=== PATIENT | female | born 1980 | race Caucasian/White ===

== ENCOUNTER 2024-08-20 09:49 | Outpatient (CLI) | payer OTHER, SELFPAY ==
--- NOTE | 2024-08-20 10:15 | CRLHL7_ITS ---
For Patients: As a result of the Century Cures Act, medical imaging exams and procedure reports are released immediately into your electronic medical record. You may view this report before your referring provider. If you have questions, please contact your health care provider. ULTRASOUND-GUIDED RIGHT BREAST BIOPSY AND POST-BIOPSY DIGITAL MAMMOGRAM FOR BIOPSY MARKER PLACEMENT CLINICAL HISTORY: Indeterminate mass-like area. COMPARISON STUDIES: 07/13/2024, 06/29/2024. TECHNIQUE: Real-time ultrasound with image documentation was used for targeting the breast lesion. Core biopsy specimens were obtained using an automated gun with a 14-gaugebiopsy needle. Post-biopsy CC and ML digital mammograms were obtained to document position of the biopsy marker. CONSENT and TIME OUT: The procedure, risks, and alternatives were explained to the patient and a consent was signed. [place] Protocol was followed including pre-procedure verification that relevant information/documentation was available, reviewed and properly matched to the patient; consent accurate and complete; and equipment and supplies available. Time Out was conducted just prior to starting procedure to verify the four required elements: patient identity, correct side/site marked (if applicable), procedure, relevant images/results properly labeled and displayed (if applicable). PROCEDURE: The patient was positioned supine on the ultrasound table. The breast was prepped with Betadine. 10 cc of 1 percent lidocaine used for local anesthesia. Core samples were obtained. A sterile metal biopsy clip was placed percutaneously to mandeep the lesion position within the breast. The specimens were placed in 10% formalin and sent to the pathology department. Pressure was held on the biopsy site until all bleeding subsided. The skin incision was closed with Steri-Strips. An ice pack was positioned over the biopsy site. Post-biopsy instructions were reviewed with the patient, and a written copy was given to her. LATERALITY: RIGHT breast. LESION: Heterogeneous area of dense tissue measuring approximately 6 cm at 12 o`clock 13 cm from the nipple. SUSPICION FOR MALIGNANCY: Low. NUMBER OF SAMPLES: 5, samples were limited due to patient anxiety and movement. BIOPSY CLIP SHAPE: 0. PROXIMITY OF CLIP TO TARGET: Within/adjacent to the lesion. IMPRESSION: Ultrasound-guided breast biopsy. When the pathology report is available, an addendum to this report will be made. ACR not applicable Dictated by Chu Becerril MD @ 08/20/2024 12:18:26 PM /sp SP/Dictated by: Chu Becerril MD @ 08/20/2024 12:18:00 PM (Electronically Signed)
--- NOTE | 2024-08-20 11:00 | CRLHL7_ITS ---
For Patients: As a result of the Century Cures Act, medical imaging exams and procedure reports are released immediately into your electronic medical record. You may view this report before your referring provider. If you have questions, please contact your health care provider. PLEASE SEE RIGHT BREAST ULTRASOUND-GUIDED BIOPSY OF SAME DAY. CRL:sp SP/Dictated by: Chu Becerril MD @ 08/20/2024 12:16:00 PM (Electronically Signed)
== END 2024-08-20 09:50 | disposition home or self-care (01) ==
LOC: US 09:54
PROVIDERS: PCP Physician Assistant; Visit Provider Physician Assistant
DX: N63.10 Unspecified lump in the right breast, unspecified quadrant (principal); R92.333 Mammographic heterogeneous density, bilateral breasts; N62 Hypertrophy of breast; R92.8 Other abnormal and inconclusive findings on diagnostic imaging of breast
CPT/HCPCS: 19083; 77065; 88305; A4648; A4649

== ENCOUNTER 2025-05-31 20:36 | Emergency (ER) | payer OTHER, SELFPAY ==
--- OUTSIDE RECORDS SUMMARY | 2025-05-31 20:38 | XMS_ITS | Clinical Summary ---
Author Organization [facility] Address [address] [place] [address] Care Team Providers Care Groundsman Name Role Phone Jodie Grijalva Primary Care Provider Allergies Active Allergy Reactions Criticality Noted Date Comments Codeine Other - Describe In Comment Field 09/07/2006 severe abdominal pain, age [age] Opioids - Morphine Analogues Nausea Only 04/18/2017 nausea Prednisone Other - Describe In Comment Field Low 11/29/2019 Pt states she does not like the side effects and will not take it unless necessary Hydrocodone-Acetaminop hen Nausea And Vomiting 09/07/2006 2004 Medications Cholecalciferol, Vitamin D3, 2,000 unit tablet Take 1 tablet by mouth 2 times daily. Patient is taking 5 tablets by mouth daily for a total of 10,000 unit 7 Active albuterol-ipratr opium (DUONEB) (2.5-0.5 mg) in 3 mL NEBULIZATION solutionIndicati ons:Moderate persistent asthma with acute exacerbation (HC) Inhale 3 mL via a nebulizer 4 times daily if needed. 1 box 5 8 Active clonazePAM (KLONOPIN) 0.5 mg tabletIndication s:Anxiety Could take 1-2 pills prior to dentist or during the dentist for anxiety if needed 20 tablet. 2 Active cyclobenzaprine (FLEXERIL) 10 mg tabletIndication s:Neck pain Take 1 Tablet (10 mg) by mouth 3 times daily if needed for Muscle Spasm. 30 Tablet 1 3 Active loratadine (Claritin) 10 mg tablet Take 1 Tablet (10 mg) by mouth once daily. 0 3 Active montelukast (SINGULAIR) 10 mg tabletIndication s:Environmental allergies,Mild intermittent asthma without complication (HC) Take 1 Tablet (10 mg) by mouth at bedtime. 90 Tablet 3 4 Active budesonide-formo teroL (Symbicort) 80-4.5 mcg/actuation (80-4.5 mcg each actuation) inhalerIndicatio ns:Environmental allergies,Mild intermittent asthma without complication (HC) INHALE TWO PUFFS BY MOUTH TWICE A DAY, increase to 2 puffs every 6 hrs with respiratory flare 1 Each 11 4 Active levalbuterol (XOPENEX HFA) 45 mcg/actuation inhalerIndicatio ns:Environmental allergies,Mild intermittent asthma without complication (HC) Inhale 1-2 Puffs by mouth every 4 hours if needed for Shortness Of Breath or Wheezing. 15 g 11 4 Active naltrexone LOW DOSE oral custom compoundIndicati ons:Fatigue, unspecified type Low Dose Naltrexone compounded to 4.5 mg tablets: Take 1 tablet by mouth daily at bedtime 90 Each 2 5 Active valACYclovir 1 gram tabletIndication s:Cold sore Take 2 Tablets (2 g) by mouth two times daily. Take for 1 day if cold sore develops as needed 32 Tablet 3 5 Active medication order composerIndicati ons:Fatigue, unspecified type,H. 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 Plan: HPV-based testing due 02/2028. Prediabetes 07/12/2019 Overview (07/12/2019): Dx age 39 History of Clostridium difficile infection 11/15 ANDRIY on CPAP 08/29/2016 Overview (01/05/2018): mild Vitamin D deficiency disease 01/16/2015 Gastritis 04/08/2014 Overview (04/08/2014): EGD 03/2014 gastritis Sciatica 01/03/2014 Anxiety 10/01/2010 Premenstrual dysphoric disorder 10/10/2009 HEALTH CARE MAINTENANCE 08/08/2009 Overview (08/08/2009): Pap Mammo Colonoscopy Bone Density Last Lipids: Chol: 161 05/05/06 9:47 AM T 12/30/04 11:09 AM HDL: 51 12/30/04 11:09 AM LDL: 115 12/30/04 11:09 AM LDL DIRECT: GLUCOSE (mg/dL) Date Value 10/04/06 4:50 PM 79 Morbid obesity 05/16/2007 Unspecified hypothyroidism 11/08/2006 Overview (11/08/2006): Goiter/+Thyroid Antibodies. Unspecified asthma(493.90) 11/08/2006 Allergic rhinitis, cause unspecified 11/08/2006 Resolved Problems Problem Noted Date Diagnosed Date Resolved Date Encounter for IUD insertion 10/07/2014 06/08/2023 Overview (10/07/2014): Removal and reinsertion today. 10/07/2014. Removal 2020..ASH Valero ....................... 10/07/2014 4:25 PM Lot [id number] EXP 03/2017.ASH Valero ....................... 10/07/2014 4:28 PM Nonallopathic lesion of lumb ar region, not elsewhere classified 01/03/2014 06/08/2023 Nonallopathic lesion of thor acic region, not elsewhere classified 01/03/2014 06/08/2023 Nonallopathic lesion of cerv ical region, not elsewhere classified 01/03/2014 06/08/2023 Nonallopathic lesion of cerv ical region, not elsewhere classified 05/12/2012 01/03/2014 Nonallopathic lesion of lumb ar region, not elsewhere classified 05/12/2012 01/03/2014 Headache(784.0) 05/12/2012 01/03/2014 IUD (intrauterine device) in place 10/10/2009 10/07/2014 Overview (10/10/2009): Mirena placed 10/2009. Acute bronchitis 09/27/2008 10/14/2014 Supervision of other normal 02/16/2008 08/08/2009 Closed trimalleolar fracture 08/17/2007 05/02/[address] acental problems affecting management of mother, unspecified as to episode of care 05/16/2007 08/08/2009 Overview (05/16/2007): meconium Other and unspecified cord e ntanglement, with compression, complicating labor and delivery, unspecified as to episode of care 05/16/20072008 Overview (05/16/2007): True knot in cord Normal delivery 05/16/2007 08/08/2009 Obesity, unspecified 11/08/2006 009 BORDERLINE HYPERTENSION 11/08/200605/29 Supervision of normal first 09/16/2006 02/16/2008 Encounters Date Type Department Care Team Description 04/12/2025 3:00 PM CDT Telemedicine [facility] [address] [place] [address] Giana Johnson NP Telehealth; Follow Up 04/07/2025 Travel 03/22/2025 1:00 PM CDT Office Visit [facility] [address] [facility] [address] [place] [address] Thi Montana MD Physical (routine physical and pap) 03/21/2025 Travel from Last 3 Months Immunizations Immunization Administration Dates Next Due AMB Influenza, IIV3 (Age >=3 years)(Flu Clinic O nly) 07/15/2008 COVID-19 vaccine (H?REL 30mcg/0.3mL) P F, MDV 04/09/2022 DTP 04/02/1986 DTaP 04/02/1986 Inactivated Polio Vaccine 04/02/1986 Influenza A (H1N1), Inactivated (Age >=3 Years) 08/08/2009 Influenza Virus, Unspecified 08/11/1998,05/29/19 93 Influenza, IIV3 (Age >=3 years) 05/15/2009,07/17 Influenza, IIV4 05/31/2022,06/26/2020 Influenza,CCIIV4 PRESERV FREE 07/06/2023 MMR 11/20/1992 Oral Polio Vaccine 04/02/1986 Pneumococcal Conj 20-valent (Prevnar 20) 022 Td (Age >=7 Years) 12/04/1997 Tdap 03/19/2016,01/25/2006 Family History Medical History Relation Name Comments Good Health Brother 1 X2,1/2 both HTN, Hypertension Brother 1 X2,1/2 Other Brother 2 Narcolepsy in h penitentiary-brother. Good Health Daughter Danni born in 05-05 Hyperlipidemia Father Hypertension Father Other Father Sleep Apnea Hypertension Maternal Grandfather Stroke Maternal Grandfather Cancer-colon Maternal Grandmother Diabetes Maternal Grandmother Good Health Maternal Grandmother Hyperlipidemia Mother Hypertension Mother Other Mother obesity, edema Heart Disease Paternal Grandfather Stroke Paternal Grandfather Stroke Paternal Grandmother at age 87 Other Paternal Uncle Sleep Apnea i n 6/7 paternal uncles. Hypertension Sister 2 Hyperlipidemia Sister 3 Good Health Sister 4 weight issues. Relation Name Status Comments Brother 1 X2,1/2 Alive Brother 2 Daughter Danni Alive Father Alive Maternal Grandfather (Age age 77 ) emphysema, stroke, HTN Maternal Grandmother Alive Mother Alive Paternal Grandfather (Age 67) [place] , fifth one Paternal Grandmother Alive age 84, new stroke Paternal Uncle Sister 1 Alive Sister 2 Sister 3 Sister 4 Social History Tobacco Use Types Packs/Day Years Used Date Smoking Tobacco: Never Smokeless Tobacco: Never Tobacco Cessation:Counseling Given: Not Answered Alcohol Use Standard Drinks/Week Comments Not Currently 0 (1 standard drink = 0.6 oz pur e alcohol) PHQ-2 Answer Date Recorded PHQ-2 TOTAL SCORE 0 03/22/2025 Social Connections Answer Date Recorded Do you often feel lonely or isolated from those around you? 0 03/21/2025 Financial Resource Strain Answer Date R ecorded Difficulty of Paying Living Expenses 3 03/21/2025 Difficulty of Paying Living Expenses Not on file 03/21/2025 Food Insecurity Answer Date Recorded Do you worry your food will run out before you are able to buy more? 1 03/21/2025 Transportation Needs Answer Date Record ed Does lack of transportation keep you from medica l appointments? 1 03/21/2025 Does lack of transportation keep you from work, meetings or getting things that you need? 1 03/21/2025 Housing Stability Answer Date Recorded What is your housing situation today? 1 03/21/2025 Utilities Answer Date Recorded Do you have trouble paying f or utilities (for example, heat, electricity, water, phone)? 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 Borderline high BP b/4 preg. Increased BP at 36wks with bedrest. SROM. Normal delivery. 2008 Term 39w 0d 12h 00m/ 3.54 kg (7 lb 13 oz) M Vag Epidur al Livin g Zakar y Matts on Delivery Location:[place] Comments A+, no GBS. Morbid obesity d uring the Last Filed Vital Signs Vital Sign Reading Time Taken Comments Blood Pressure 130/74 03/22/2025 12:57 PM CDT Pulse 78 03/22/2025 12:57 PM CDT Temperature 37.3 C (99.1 F) 06/04/2023 10:21 PM CDT Respiratory Rate 18 06/04/2023 10:2 1 PM CDT Oxygen Saturation 98% 06/08/2023 3:24 PM CDT Inhaled Oxygen Concentration - - Weight 112.9 kg (248 lb 12.8 oz) 2024 12:57 PM CDT Height 172.7 cm (5' 8) 03/22/2025 12:5 7 PM CDT Body Mass Index 37.83 03/22/2025 12:57 PM CDT Plan of Treatment Upcoming Encounters Date Type Department Care Team (Late st Contact Info) Description 07/16/2025 4:15 PM COMPUTER DRAFTER Telemedicine [address] [address] Giana Johnson, ZACH [address] [facility] [address] [place] [address] Health Maintenance Due Date Last Done Comments Hepatitis B series for 19+ (1 of 3 - 19+ 3-dose series) 2000 HPV series for age 9-45 (1 - 3-dose SCDM series) 2008 COVID-19 vaccine series (2024- season) 2025 04/09/2022 Influenza Vaccine (#1) 2025 , 05/31/2022, 06/26/2020, Additional history exists Tetanus booster 03/19/2026 03/19/2016, 12/29, 12/04/1997 BMI (ht and wt on same day) for age 18+ 03/22/2026 03/22/2025, 01/02/2024, 06/08/2023, Additional history exists Depression screening for age 12+ 03/22/2026 03/22/2025, 01/04/2024, 01/02/2024, Additional history exists Pap test for age 21-65 03/22/2026 , 03/22/2025, 01/02/2024, Additional history exists RSV vaccine for adults or (1 - 1-dose 75+ series) 2056 HIV for age 15-65 Addressed 12/01/2002 (Ve rified in Care Everywhere or Patient Record) Overridden with the intention of not completing the topic Hepatitis C screening for age 18-79 Completed 05/31/2022 Pneumococcal series for age 6-49 Aged Out 05/31/2022 No longer eligible b ased on patient's age to complete this topic Medical Devices Implanted Type Area Tennis Coach Device Identifier Shelf Expiration Date Model / Serial / Lot Plate 08/31 Tubular 97mm 8 Hole W/Collar - [id number] Implanted:Qty : 1 on 08/17/2007 at [facility] Imp.,Screw s & Plates Left: Ankle Depreeplay.it 241.38# / / Screw Cortex 3.5x14mm Self Tapping 204.814 [employer]ob - [id number] Implanted:Qty : 3 on 08/17/2007 at [facility] Imp.,Screw s & Plates Left: Ankle Depreeplay.it 204.814# / / Screw Canclls 4.0x45mm Part Thread 207.045 [employer] - [id number] Implanted:Qty : 2 on 08/17/2007 at [facility] Imp.,Screw s & Plates Left: Ankle Depreeplay.it 207.045# / / Screw Cortex 3.5x18mm Self Tapping 204.818 [employer] - [id number] Implanted:Qty : 1 on 08/17/2007 at [facility] Left: Ankle Depuy [employer] 204.818# / / Screw Cortex 3.5x22mm Self Tapping 204.822 Synthes - [id number] Implanted:Qty : 1 on 08/17/2007 at [facility] Left: Ankle Depuy [employer] 204.822# / / Screw Canclls 4.0x20mm Full Thread 206.020 Synt - [id number] Implanted:Qty : 2 on 08/17/2007 at [facility] Left: Ankle Depuy Synthes [employer] 206.020# / / Procedures Procedure Name Priority Date/Time Associated Diagnosis Comments MILLER KILN DRIED SALT THIN PREP PAP SCREEN IMAGED Routine 03/22/2025 1:00 AM CDT Screening for cervical cancer HPV HIGH RISK Routine 03/22/2025 1:00 AM CDT Screening for cervical cancer ANTI HCV Routine 05/31/2022 1:59 PM CDT Need for hepatitis C screening test from Last 3 Months or Most Recently Relevant to Health Maintenance Results * MILLER KILN DRIED SALT THIN PREP PAP SCREEN IMAGED (03/22/2025 1:00 AM CDT) Case Report Gynecologic Cytology Report Case: [id number] Authorizing Provider: Thi Montana Collected: 03/22/2025 Gumaro0 MD Dudley Ordering Location: [facility] Received: 03/22/2025 1336 Clinic First Screen: Tereso Bishop Specimen: MILLER KILN DRIED SALT ThinPrep Vial Screening, Cervical 03/31/2025 2:31 PM CDT [facility] INTERPRETATION/ RESULT NEGATIVE FOR INTRAEPITHELIAL LESION OR MALIGNANCY (NIL) (none) 03/31/2025 2:31 PM CDT [facility] at 1431 CDT SPECIMEN ADEQUACY Satisfactory for evaluation Endocervical component present 03/31/2025 2:31 PM CDT [facility] HPV REQUEST HPV and PAP 03/31/2025 2:31 PM CDT [facility] ENTRAL LAB[facility]ORY Date of LMP 05/01/2022 03/31/2025 2:31 PM CDT [facility] Last Pap Date 01/02/2024 03/31/2025 2:31 PM CDT [facility] Last Pap Result NIL 2:31 PM CDT [facility] Abnormal Pap or [place] Bx in last 5 years No 03/31/2025 2:31 PM CDT [facility]ORY Menstrual Status Hormonally Suppressed 03/31/2025 2:31 PM CDT [facility] [place] Bx Done Today No 03/31/2025 2:31 PM CDT [facility] Additional Information None given 03/31/2025 2:31 PM CDT [facility] ENTR[facility] LABOR[facility]ORY Comment: Cytology is screened at [facility], Central Laboratory - [address] [facility] [address] [address] and [facility] - [address] [place] [address] and [facility] - [address] [place] [address] Interpreted at [facility] - [address] , [place] [address] Automated Review Successful 03/31/2025 2:31 PM CDT [facility] Comment:Specimen processed s uccessfully by automated human resource manager device, ThinPrep Imaging System, [employer] ANCILLARY TESTING MILLER KILN DRIED SALT HPV Ordered, Please see separate report 03/31/2025 2:31 PM CDT [facility] Note The pap test is a screening technique, not a diagnostic procedure. It is used primarily to screen for squamous cancers and precursor lesions. Published studies have shown that it is subject to both false negative and false positive results. The pap test should not be used as the sole means to diagnose or exclude pre-malignant and malignant lesions. 03/31/2025 2:31 PM CDT [facility] Other (Cervical) Non-Blood / Unknown 03/22/2025 1:00 AM CDT 03/22/2025 1:36 PM CDT Thi Montana MD PATHOLOGY/CYTOLOG Y Final Result Performing Organization Address City/[facility]/ZIP Co de Phone Number [facility] [address] [place] [address], * HPV HIGH RISK (03/22/2025 1:00 AM CDT) TYPE 16 Negative Negative 03/28/2025 8:59 AM CDT [facility] TRAL LABORATORY TYPE 18 Negative Negative 03/28/2025 8:59 AM CDT [facility] OTHER HIGH RISK TYPES Negative Negative 03/28/2025 8:59 AM CDT [facility] Other (Cervical) Non-Blood / Unknown 03/22/2025 1:00 AM CDT 03/26/2025 8:12 AM CDT Narrative [facility] - 03/28/2025 8:59 AM CDT HPV types 16, 18, 31, 33, 35, 39, 45, 51, 52, 56, 58, 59, 66 and 68 DNA were undetectable or below the pre-set threshold. Methodology: Anabela Eduardo 4800 HPV Test Thi Montana MD MICROBIOLOGY F inal Result Performing Organization Address [facility] Co de Phone Number [facility] [address] [place] [address], * ANTI HCV (05/31/2022 1:59 PM CDT) HEPATITIS C ANTIBODY Non-React harish Non-React harish 06/01/2022 1:34 AM CDT [facility] Comment:Antibodies to HCV no t detected; does not exclude the possibility of exposure to HCV. Blood BLOOD SPECIMEN / Unknown Venipuncture / Unknown 05/31/2022 1:59 PM CDT 05/31/2022 2:04 PM CDT Jodie GONZALEZ SEND OUTS Final Result [facility] [address] [place] [address], from Last 3 Months or Most Recently Relevant to Health Maintenance Insurance [facility] ATTN: [place] [address] [facility] * Guarantor: [facility] Account Type Relation to Patient Date of Phone Billing Address Contract 2005 [address] [place] [id number] Advance Directives * Full Code (Latest Code Status on File) Date Activated Date Inactivated Comments 09/27/2008 10:35 AM 09/28/2008 1:56 AM * Full Code Date Activated Date Inactivated Comments 09/21/2008 10:22 PM 09/22/2008 1:23 AM * Full Code Date Activated Date Inactivated Comments 09/04/2008 6:01 PM 09/04/2008 8:36 PM * Full Code Date Activated Date Inactivated Comments 08/17/2007 5:28 PM 08/19/2007 12:05 AM * Full Code Date Activated Date Inactivated Comments 08/16/2007 8:38 PM 08/17/2007 5:28 PM Care Teams Groundsman Relationship Specialty Start Date End Date Jodie Grijalva PA [address] [address] [place] [address] PCP - General Physician Manager Wholesale 01/04/24
--- OUTSIDE RECORDS SUMMARY | 2025-05-31 20:38 | XMS_ITS | Encounter Summary ---
Author Organization [facility] Address [address] [place] [address] Care Team Providers Care Precision Inspector Name Role Phone Jodie Grijalva PA-C Primary Care Provider [phone] Encounter Details Date Type Department Care Team (Late st Contact Info) Description 05/03/2018 Correspondence None No Primary/Referring, Phy DME EQUIPMENT PROOF OF DELIVERY Social History Tobacco Use Types Packs/Day Years Used Date Smoking Tobacco: Never Comments Unknown Sex and Gender Information Value Date Recorded Sex Assigned at Not on file Legal Sex Female 11:44 AM CDT Gender Identity Not on file Sexual Orientation Not on file documented as of this encounter Plan of Treatment Not on file documented as of this encounter Visit Diagnoses Not on filedocumented in this encounter Care Teams Precision Inspector Relationship Specialty Start Date End Date Jodie Grijalva PA-C [address] [facility] [address] [place] [address] PCP - General Physician Welding Machine Operator Arc 02/15/17 documented as of this encounter
--- OUTSIDE RECORDS SUMMARY | 2025-05-31 20:39 | XMS_ITS | Clinical Summary ---
Author Organization [facility] Address [address] [place] [address] Care Team Providers Care Icer Hand Name Role Phone Jodie Grijalva PA-C Primary Care Provider [phone] Source Comments You are receiving this document as you are listed as the primary care provider,follow-up provider, or the patient has been referred to you for consultation.This is in compliance with the Medicare andMedicaid EHR Incentive Program,which states Providers who transition their patient to another setting of careor provider of care or refers their patient to another provider of care shouldprovide summary care record for each transition of care or referral. [facility] Allergies Active Allergy Reactions Criticality Noted Date Comments Codeine Gastrointestinal,Pete sea And Vomiting,Other, see comments 09/07/2006 Other reaction(s): GI intolerance severe abdominal pain, age 2003 severe abdominal pain, age 2003 Hydrocodone-Acetaminop hen Nausea And Vomiting 09/07/2006 2004 2004 Prednisone Gastrointestinal,Oth er, see comments Low 11/29/2019 Pt states she does not like the side effects and will not take it unless necessary Pt states she does not like the side effects and will not take it unless necessary Pt states she does not like the side effects and will not take it unless necessary Morphine And Codeine 04/18/2017 nausea Medications montelukast (SINGULAIR) 10 MG tablet Take 1 Tablet (10 mg) by mouth daily at bedtime. 2 03/08/2017 Active ALBUterol sulfate HFA 108 (90 Base) MCG/ACT inhaler Inhale 2-4 Puffs. 06/09/2016 Active albuterol 2.5 mg/3 mL, 0.083%, (PROVENTIL) nebulizer solution Inhale 2.5 mg. 10/11/2014 Active ALBUterol sulfate HFA 108 (90 Base) MCG/ACT inhaler Inhale 2-4 Puffs. 06/09/2016 Active SYMBICORT 80-4.5 MCG/ACT inhaler Inhale 2 Puffs two times a day. 11 08/23/2019 Active budesonide-formo terol (SYMBICORT) 80-4.5 MCG/ACT inhaler Inhale 2 Puffs. 05/01/2019 Active naltrexone (REVIA) 50 MG tablet Take 4.5 mg by mouth daily. Active Active Problems Problem Noted Date Diagnosed Date Obstructive sleep apnea on CPAP 04/18/2017 Overview (04/21/2017): Setting: APAP 5-15 Supplied by: [facility] PSG done: 04/05/17 AHI 7 (eds) RDI 14 Lowest O2 Sat: 89% [place] 04/18/17 new Hypersomnia 04/18/2017 Asthma 02/02/2003 Overview (04/20/2017): Asthma NOS Lumbago 02/02/2003 Overview (04/20/2017): Pain Low Back Obesity 02/02/2003 Encounters Date Type Department Care Team Description 04/03/2025 Results Follow-Up [facility] [place] [address] [place] [address] Navarro Cordova MD 04/01/2025 5:00 PM CDT Ancillary Procedure [facility] [address] [address] [place] [phone] Navarro Cordova MD Closed displaced fracture of fifth metatarsal bone of left foot with routine healing, subsequent encounter 03/22/2025 9:40 AM CDT Office Visit [facility] [address] [place] [phone] Navarro Cordova MD Closed displaced fracture of fifth metatarsal bone of left foot with routine healing, subsequent encounter (Primary Dx) 03/22/2025 9:30 AM CDT Ancillary Procedure [facility] [place] [address] [address] [address] [place] [address] Navarro Cordova MD Closed displaced fracture of fifth metatarsal bone of left foot with routine healing, subsequent encounter from Last 3 Months Immunizations Immunization Administration Dates Next Due DTP 04/02/1986 Influenza, Unspecified Formulation 08/11/1998, OPV, Trivalent (Orimune or tOPV) 04/02/1986 Td 12/04/1997 Social History Tobacco Use Types Packs/Day Years Used Date Smoking Tobacco: Never Smokeless Tobacco: Never Alcohol Use Standard Drinks/Week Comments Yes 0 (1 standard drink = 0.6 oz pur e alcohol) Comments Unknown Sex and Gender Information Value Date Recorded Sex Assigned at Not on file Legal Sex Female 11:44 AM CDT Gender Identity Not on file Sexual Orientation Not on file Last Filed Vital Signs Vital Sign Reading Time Taken Comments Blood Pressure 125/93 04/18/2017 4:29 PM CDT Pulse 93 07/29/2018 8:34 AM LIQUOR INSPECTOR Temperature 37.3 C (99.2 F) 01/13/2025 5:15 PM CDT Respiratory Rate - - Oxygen Saturation 97% 07/29/2018 8:34 AM LIQUOR INSPECTOR Inhaled Oxygen Concentration - - Weight 110.2 kg (243 lb) 01/13/2025 5:15 PM CDT Height 170.2 cm (5' 7) 01/13/2025 5:15 PM CDT Body Mass Index 38.06 01/13/2025 5:15 PM CDT Plan of Treatment Health Maintenance Due Date Last Done Comments Hep C Screening (Preventive Services) 1981 Asthma ACT (score of 20 or higher) 1985 IPV (Polio) Vaccine (2 of 3 - 4-dose series) 04/30/1986 04/02/1986 HIV Screening (Preventive Services) 1997 Adult Preventive Visit 1999 HepB Vaccine (1) 2000 Cervical Cancer Screening Due 11/15/2001 11/14/2001, 02/09/2000, 11/04/1998 HPV Vaccine (1 - 3-dose SCDM series) 2008 COVID-19 Vaccine (2 - season) 2025 04/09/2022 Influenza Vaccine (#1) 2025 , 05/31/2022, 06/26/2020, Additional history exists Mammogram 06/29/2025 06/29/2024 DTaP/Tdap/Td Vaccine (5 - Tdap) 03/19/2026 03/19/2016, 01/25/2006, 12/04/1997, Additional history exists Diabetes Screening- (based on age and BMI) 06/09/2026 06/09/2023 Zoster/Shingles Vaccine (1 of 2) 2031 Pneumococcal Vaccine Completed 05/31/2022 HepA Vaccine Aged Out No longer eligi ble based on patient's age to complete this topic Hib Vaccine Aged Out No longer eligi ble based on patient's age to complete this topic MCV4 Vaccine Aged Out No longer eligi ble based on patient's age to complete this topic Meningococcal B Vaccine Aged Out No l onger eligible based on patient's age to complete this topic Procedures Procedure Name Priority Date/Time Associated Diagnosis Comments CT FOOT LT WO IV CONT Routine 04/01/2025 4:55 PM CDT Closed displaced fracture of fifth metatarsal bone of left foot with routine healing, subsequent encounter XR FOOT LT 3+ VIEWS Routine 03/22/2025 9 :37 AM CDT Closed displaced fracture of fifth metatarsal bone of left foot with routine healing, subsequent encounter ANATOMICAL PATH-C Routine 11/14/2001 12: 07 PM LIQUOR INSPECTOR from Last 3 Months or Most Recently Relevant to Health Maintenance Results * CT Foot Lt WO IV Cont (04/01/2025 4:55 PM CDT) Anatomical Region Laterality Modality Lower Extremity, Foot, Ankle, Skeletal, Foot & A nkle Computed Tomography Impressions 04/02/2025 9:31 AM CDT 1. Osseous fusion across the bulk of the nondisplaced fracture of the base of the left 5th metatarsal. 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 COMPARISON: 03/22/2025, 01/13/2025 TECHNIQUE: Thin section axial scans were obtained through the foot. Sagittal and coronal reconstruction was performed without contrast. FINDINGS: Nondisplaced oblique intra-articular fracture of the lateral base of the 5th metatarsal. There has been osseous fusion across the bulk of the fracture. Minimal persistent fracture lucency plantar and laterally. The fracture appears to be essentially healed. No new fractures. No dislocation. Limited evaluation of the surgical changes in the medial and lateral malleoli appear unremarkable without definite hardware complication. Multiple small ossicles abutting the tips of the medial and lateral malleoli likely sequela of prior injury. 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 Small intra-articular ossicles are seen in the anterior aspect of the tibiotalar joint measuring up to approximately 5 mm. Mild degenerative arthrosis of the talonavicular and subtalar joints. Mild degenerative arthrosis of the 1st metatarsophalangeal joint. Remainder of the visualized joints are unremarkable. No marginal erosions. Procedure Note Lane Webber MD - 04/02/2025 EXAM: CT FOOT LT WO IV CONT INDICATION: 5th metatarsal base nonunion? COMPARISON: 03/22/2025, 01/13/2025 TECHNIQUE: Thin section axial scans were obtained through the foot.Sagittal and coronal reconstruction was performed without contrast. FINDINGS: Nondisplaced oblique intra-articular fracture of the lateral base of the5th metatarsal. There has been osseous fusion across the bulk of thefracture. Minimal persistent fracture lucency plantar and laterally. Thefracture appears to be essentially healed. No new fractures. No dislocation. Limited evaluation of the surgicalchanges in the medial and lateral malleoli appear unremarkable withoutdefinite hardware complication. Multiple small ossicles abutting the tipsof the medial and lateral malleoli likely sequela of prior injury. 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 Smallintra-articular ossicles are seen in the anterior aspect of the tibiotalarjoint measuring up to approximately 5 mm. Mild degenerative arthrosis ofthe talonavicular and subtalar joints. Mild degenerative arthrosis of the1st metatarsophalangeal joint. Remainder of the visualized joints areunremarkable. No marginal erosions. IMPRESSION 1. Osseous fusion across the bulk of the nondisplaced fracture of the baseof the left 5th metatarsal. Signed by: Lane Webber 04/02/2025 9:31 AM Navarro Cordova MD RAD CT Final Res ult * XR Foot Lt 3+ Views (03/22/2025 9:37 AM CDT) Anatomical Region Laterality Modality Lower Extremity, Foot Digital Ra diography Narrative 03/22/2025 10:39 AM CDT EXAM: XR FOOT LT 3+ VIEWS INDICATION: left foot pain COMPARISON: 01/13/2025 FINDINGS: Three images left foot. Healing fracture at the 5th metatarsal base with increased callus formation. No change in alignment. No new osseous abnormality. Postoperative change about the ankle. Signed by: Jez James 03/22/2025 10:39 AM Procedure Note Jez James MD - 03/22/2025 EXAM: XR FOOT LT 3+ VIEWS INDICATION: left foot pain COMPARISON: 01/13/2025 FINDINGS: Three images left foot. Healing fracture at the 5th metatarsal base withincreased callus formation. No change in alignment. No new osseousabnormality. Postoperative change about the ankle. Signed by: Jez James 03/22/2025 10:39 AM Navarro Cordova MD RAD GD Final Res ult * Anatomical Path-C (11/14/2001 12:07 PM LIQUOR INSPECTOR) PAP Smear SEE TEXT No normal range HP CONVERSION Comment: Patient: DIANDRA HERNANDEZ CERVICAL CYTOLOGY REPORT Pathology # [id number] Date Obtained: Date Received: LMP: 3 1 CLINICAL HIST HMT ORTHOCEPT. PRV SMR 6 [id number] CERVICAL SMEAR SPECIMEN ADEQUACY: Satisfactory. ENDOCERVICAL CELLS: Present. CYTOLOGIC IMPRESSION: Within Normal Limits (Negative). Verified 11/23/01 by: LKR (electronic signature) 11/14/2001 12:0 7 PM LIQUOR INSPECTOR us Susana Fontaine MD LAB_[email or web address] Final Result HP CONVERSION from Last 3 Months or Most Recently Relevant to Health Maintenance Insurance [facility] Care Teams Icer Hand Relationship Specialty Start Date End Date Jodie Grijalva, SHIRAC [address] [place] [address] [place] [id number] PCP - General Physician Personnel Arbitrator 02/15/17
--- OUTSIDE RECORDS SUMMARY | 2025-05-31 20:39 | XMS_ITS | Encounter Summary ---
Author Organization [facility] Address [address] [place] [address] Care Team Providers Care Cryptographer Name Role Phone Jodie Grijalva PA-C Primary Care Provider [phone]- [phone] Encounter Details Date Type Department Care Team (Late st Contact Info) Description 04/03/2025 Results Follow-Up [facility] [address] [place] [id number] Navarro Cordova MD [address] [place], [place] [address] Social History Tobacco Use Types Packs/Day Years [...] on filedocumented in this encounter Care Teams Cryptographer Relationship Specialty Start Date End Date Jodie Grijalva PA-C [address] [place] [address] [place] [id number] PCP - General Physician Sales Development Consultant 02/15/17 documented as of this encounter
[2025-05-31 20:41] VITALS: BP 141/77; PULSE 75; RESP 18; TEMP 36.7; O2SAT 99; BMI 36.5
--- NOTE | 2025-05-31 20:43 | CRLHL7_ITS ---
For Patients: As a result of the Century Cures Act, medical imaging exams and procedure reports are released immediately into your electronic medical record. You may view this report before your referring provider. If you have questions, please contact your health care provider. Indication: Right upper quadrant pain Technique: Limited abdominal ultrasound. Evaluation of the liver, gallbladder, common bile duct, pancreas, right kidney, and aorta/IVC. Grayscale and color Doppler imaging utilized. Comparison: None Findings: Liver: Unremarkable size and echotexture. Gallbladder: No stones or sludge. No wall thickening or adjacent fluid. Technologist reports negative sonographic Sweeney`s sign. Common bile duct: 5 mm. Pancreas: Partially obscured. Visualized portions are unremarkable. Right kidney: Unremarkable. Impression: No significant sonographic abnormality appreciated. Dictated by Armando Zamarripa MD @ 05/31/2025 9:50:50 PM (Electronically Signed)
--- NOTE | 2025-05-31 20:43 | ED.ABDPAIN ---
HPI - Abdominal Pain General Time Seen by Provider: 20:43 Date Seen: 05/31/25 Chief Complaint: Abdominal Pain Stated Complaint: upper abd pain Time Seen by Provider: 05/31/25 20:43 History of Present Illness HPI narrative: This 45-year-old female is coming into the ER with concern discomfort in her abdomen and nausea. She has been having back pain as well. She started with some abdominal bloating, and throughout the day has had pain and discomfort more in her upper abdomen. She is nauseated but no vomiting yet, diminished appetite. She did eat a banana about an hour ago and made her nausea and discomfort worse. No fevers or chills, no urinary symptoms. She denies any prior abdominal surgery. She does not want anything for pain at this time, states she is not nauseated enough that she would want nausea meds. She did looked on [employer] and it recommended she be evaluated. In her back, she really is feeling pain more in her low back. Patient has an IUD. Related Data Home Medications ?Medication ?Instructions ?Recorded ?Confirmed montelukast 10 mg tablet 10 mg PO QPM 05/31/25 05/31/25 Allergies Allergy/AdvReac Type Severity Reaction Status Date / Time No Known Drug Allergies Allergy Verified 05/31/25 20:45 Review of Systems Status of ROS Reports: 6 or more systems reviewed and unremarkable except as noted in History and below PFSH PFS Social History Smoking Status: Never smoker Second hand tobacco smoke exposure: No How often do you have a drink containing alcohol: never AUDIT-C Alcohol total score: 0 Non-prescribed substance use: denies use Exam Const: Vital Signs, click to edit/add: Vital Signs - 24 hr 05/31/25 20:41 05/31/25 21:05 05/31/25 22:10 Temperature 98.0 F 98.0 F 98.0 F Pulse Rate [Right Pulse Oximeter] 75 Respiratory Rate 18 Blood Pressure [Ri ght Upper Arm] 141/77 H Pulse Oximetry 99 Oxygen Delivery Me thod Room Air 05/31/25 22:45 06/01/25 00:22 06/01/25 00:23 Temperature 98.0 F 98.0 F 98.0 F Pulse Rate [Right Pulse Oximeter] 71 78 78 Respiratory Rate 18 18 18 Blood Pressure [Ri ght Upper Arm] 135/74 131/74 131/74 Pulse Oximetry 99 99 Oxygen Delivery Me thod Room Air Room Air This 45-year-old female is alert, interactive, no apparent distress. Sclera clear, no icterus, symmetrical facial function. Speech is normal, able speak in complete sentences. Neck is supple, no adenopathy. Lungs are clear, good air entry, no wheezing or crackles, no tachypnea, no accessory muscle use. CV regular rate and rhythm, no murmur, normal S1-S2, no S3-S4. Abdomen is soft, bowel sounds are present. She has definite right upper quadrant to epigastric pain without any rebound or guarding. I do not feel any organomegaly. Skin visualized without rash, no jaundice noted. Documenting provider has reviewed patient's vital signs: yes Course Course ED Course: Patient is declining any pain or nausea medicines at this time, she is advised to let us know if her symptoms are worsening. We will place an IV, obtain labs and start some IV fluids. Will start with a right upper quadrant ultrasound as I do suspect potential biliary issues. If her lipase were to come back positive, she would need CT scan done. It is possible that this could be early atypical gastroenteritis or colitis, diverticulitis but do highly suspect biliary etiology at this time. Reevaluation(s) Time of Reevaluation #1: 21:01 Reevaluation #1: Patient did ask staff if the Toradol went through the IV. I went back to talk to her. We reviewed the IV Zofran and the IV Toradol. She has changed her mind and will take this, I think this is appropriate. Nursing staff is aware. All checked back in a while to make sure that it is giving her adequate control. It is really her low back aching right now that is problematic for her. Time of Reevaluation #2: 21:46 Reevaluation #2: Have reviewed with patient that her preliminary report report from the shop tailor apprentice is not showing any pathology, I did look at images myself and would concur. There certainly does not seem to be any choledocholithiasis. Her lipase is normal, liver functions are normal. White blood count normal. C-reactive protein is just minimally up at 1.8. We are going to proceed with CT imaging of her abdomen pelvis with IV contrast to ensure there were not missing other pathology. We did review that she still could have gallbladder pathology from dysfunctional gallbladder issues. ARINA scan would be the next step looking at that which we do not do emergently out of the ER. We will obtain a CT. She is feeling better after medications. Time of Reevaluation #3: 23:15 Reevaluation #3: Have reviewed her CT findings. Her urinalysis does not correlate with any cystitis. We did review the possibility of enteritis and sclerosing mesenteritis. She also has a left ovarian cyst. We really should proceed with ultrasound of the ovary to ensure no torsion. Unfortunately, ovarian cysts can be common complications of Mirena IUDs. She is clinically feeling better but we really should further characterize this given that it was [address] She understands and does agree to proceed. Additional Reevaluation(s): 12:17 a.m.: The preliminary report from the shop tailor apprentice is that this is a simple cyst, there was good blood flow. Patient is requesting discharge. I will contact her on Tuesday when I am back in the ER if there are any significant changes once the radiologist reads this. Toradol did help her symptoms, will send her some from [facility], 20 tabs. As far as the enteritis and mesenteric issues, I do not know if she will have ongoing symptoms, progressed to nausea or vomiting or diarrhea. Time will tell. We have discussed follow up in clinic. Vital Signs Vital signs: Initial Vital Signs Temperature 98.0 F 05/31/25 20:41 Temperature Source Temporal Artery Scan 05/31/25 20:41 Pulse Rate 75 05/31/25 20:41 Respiratory Rate 18 05/31/25 20:41 Blood Pressure 141/77 H 05/31/25 20:41 Blood Pressure Mean 98 05/31/25 20:41 Blood Pressure Position Sitting 05/31/25 20:41 Pulse Oximetry 99 05/31/25 20:41 Oxygen Delivery Method Room Air 05/31/25 20:41 Vital Signs Temperature 98.0 F 05/31/25 20:41 Pulse Rate 75 05/31/25 20:41 Respiratory Rate 18 05/31/25 20:41 Blood Pressure 141/77 H 05/31/25 20:41 Pulse Oximetry 99 05/31/25 20:41 Oxygen Delivery Method Room Air 05/31/25 20:41 Temperature 98.0 F 06/01/25 00:23 Pulse Rate 78 06/01/25 00:23 Respiratory Rate 18 06/01/25 00:23 Blood Pressure 131/74 06/01/25 00:23 Pulse Oximetry 99 06/01/25 00:22 Oxygen Delivery Method Room Air 06/01/25 00:22 Medications Administered Medications: Discontinued Medications Generic Name Dose Route Start Last Admin Trade Name Mannq PRN Reason Stop Dose Admin Sodium Chloride 1,000 mls @ 500 mls/hr 05/31/25 20:44 05/31/25 21:48 0.9 % Sodium Chloride 1000 Ml IV 05/31/25 22:43 Infused .Q2H CHEYANNE Infusion Ketorolac Tromethamine 15 mg 05/31/25 21:01 05/31/25 21:05 Ketorolac 15 Mg/Ml Inj IVP 05/31/25 21:02 15 mg ONCE ONE Administration Ondansetron HCl 4 mg 05/31/25 21:01 05/31/25 21:05 Ondansetron 2 Mg/Ml Inj IVP 05/31/25 21:02 4 mg ONCE ONE Administration MDM - Abdominal Pain Lab Data Attestation: I reviewed the patient's lab results. Labs: Lab Results 05/31/25 05/31/25 Range/Units 20:50 21:02 WBC 7.32 (4.50-11.00) K/uL RBC 4.61 (4.00-5.20) m/uL Hgb 13.9 (12.0-16.0) gm/dL Hct 41.9 (33.0-51.0) % MCV 91 (80-100) fL MCH 30 (26-34) pg MCHC 33 (32-36) gm/dL RDW Coeff of [place]lyn 11.9 (11.5-15.5) % Plt Count 223 (140-440) K/uL Neut % (Auto) 74.1 H (42.0-72.0) % Lymph % (Auto) 14.8 L (20-44) % [place] % (Auto) 8.6 (0.0-11.0) % Eos % (Auto) 2.2 (0.0-7.0) % Baso % (Auto) 0.3 (0.0-3.0) % Neut # (Auto) 5.40 (1.7-7.0) K/uL Lymph # (Auto) 1.10 (0.90-2.90) K/uL [place] # (Auto) 0.60 (0.00-0.90) K/UL Eos # (Auto) 0.16 (0.00-0.50) K/uL Baso # (Auto) 0.02 (0.00-0.30) K/uL Abs Immat Gran (auto) 0.00 (0.00-0.30) K/uL Imm/Tot Granulo (auto) 0.0 % Sodium 135 (135-149) mmol/L Potassium 3.9 (3.6-5.1) mmol/L Chloride 104 (96-114) mmol/L Carbon Dioxide 28 (20-32) mmol/L Anion Gap 3 L (7-15) mEq/L BUN 11 (5-24) mg/dL Creatinine 0.8 (0.5-1.5) mg/dL Estimated Creat Clear 90.53 Estimated GFR 93 ml/min Glucose 95 (60-115) mg/dL Lactate 0.6 (0.5-1.9) mmol/L Calcium 8.4 (8.4-10.6) mg/dL Total Bilirubin 0.2 (0.1-1.5) mg/dL Direct Bilirubin 0.0 (0.0-0.5) mg/dL AST 26 (12-35) U/L ALT 22 (4-35) U/L Alkaline Phosphatase 73 (40-150) U/L C-Reactive Protein 1.8 H (0.5-1.0) mg/dL Total Protein 6.1 (6.0-8.3) g/dL Albumin 3.5 (3.3-5.0) g/dL Lipase 78 (23-300) U/L HCG, Qual Negative (Negative) Urine Color Yellow (Yellow) Urine Appearance Clear (Clear) Urine pH 7.0 (5.0-8.5) Ur Specific [place] 1.015 (1.000-1.030) Urine Protein Negative (Negative) Urine Glucose (UA) Negative (Negative) Urine Ketones Negative (Negative) Urine Blood Negative (Negative) Urine Nitrite Negative (Negative) Urine Bilirubin Negative (Negative) Urine Urobilinogen 0.2 (0.2-1.0) Ur Leukocyte Esterase Negative (Negative) Urine RBC 0-2 (0-2) Urine WBC 0-2 (0-5) Ur Squamous Epith Cells None (None-Few) Urine Bacteria None (None) Imaging Data US - abdomen: Attestation: I have reviewed the pertinent imaging results. Radiologist's impression: Patient: DIANDRA BANERJEE Facility:?[facility] Patient ID:?[id number] Site Patient ID:?[id number]. Site :?1980 Study:?US-Abdomen RUQ-05/31/2025 9:40:07 PM Ordering Physician:?Madisyn Vargas Final Report: Indication: Right upper quadrant pain Technique: Limited abdominal ultrasound. Evaluation of the liver, gallbladder, common bile duct, pancreas, right kidney, and aorta/IVC. Grayscale and color Doppler imaging utilized. Comparison: None Findings: Liver: Unremarkable size and echotexture. Gallbladder: No stones or sludge. No wall thickening or adjacent fluid. Technologist reports negative sonographic Sweeney`s sign. Common bile duct: 5 mm. Pancreas: Partially obscured. Visualized portions are unremarkable. Right kidney: Unremarkable. Impression: No significant sonographic abnormality appreciated. Dictated by Armando Zamarripa MD @ 05/31/2025 9:50:50 PM (Electronic Signature) CT scan - abdomen: Attestation: I have reviewed the pertinent imaging results. Radiologist's impression: Patient: DIANDRA BANERJEE Facility:?[facility] Patient ID:?[id number] Site Patient ID:?[id number]. Site :?1980 Study:?CT-Abdomen/Pelvis W ISOVUE 370-05/31/2025 10:28:41 PM Ordering Physician:?Madisyn Vargas Final Report: INDICATION: Right upper quadrant/epigastric abdominal pain. TECHNIQUE: CT abdomen and pelvis acquired with 118 cc Isovue 370 IV contrast. COMPARISON: Abdominal ultrasound 05/31/2025. FINDINGS: Lower chest: Unremarkable. Liver: Unremarkable. Gallbladder and bile ducts: Unremarkable. Pancreas: Unremarkable. Spleen: Unremarkable. Adrenal glands: Unremarkable. Kidneys: Symmetric renal enhancement. No hydronephrosis or hydroureter. No obstructing calculi. GI tract: No bowel obstruction. Mild wall thickening of scattered small bowel loops. Moderate colonic stool burden. Normal appendix. Vasculature: No abdominal aortic aneurysm. Grossly patent vasculature. Lymph nodes: Several minimally prominent mesenteric lymph nodes. Peritoneum/Abdominal Wall: Trace pelvic ascites. No pneumoperitoneum. Mild mesenteric fat stranding centrally. Pelvis: Minimal bladder wall thickening. Left adnexal cyst measuring 5.0 cm. Intrauterine device grossly in satisfactory position. Bones: No acute abnormality. IMPRESSION: 1. Mild wall thickening of scattered small bowel loops may reflect sequelae of mild nonspecific enteritis. 2. Mild central mesenteric fat stranding with numerous mildly prominent mesenteric lymph nodes, nonspecific, but may be seen in the setting of sclerosing mesenteritis. 3. Moderate colonic stool burden. 4. Minimal bladder wall thickening. Correlate for cystitis. 5. Left adnexal cyst measuring 5.0 cm. Please note that all CT scans at this facility use dose modulation, iterative reconstruction, and/or weight-based dosing when appropriate to reduce radiation dose to as low as reasonably achievable. Dictated by Dionisio Ramires MD @ 05/31/2025 10:57:21 PM (Electronic Signature) US pelvis: Attestation: I have reviewed the pertinent imaging results. Radiologist's impression: Patient: DIANDRA BANERJEE Facility:?[facility] Patient ID:?[id number] Site Patient ID:?[id number]. Site :?1980 Study:?US-Pelvis PELVIS TV-06/01/2025 12:28:05 AM Ordering Physician:Winter Vargas Final Report: INDICATION: Left ovarian cyst, Mirena IUD. TECHNIQUE: Ultrasound pelvis transvaginal for better assessment or to better visualize the endometrium. Real-time sonographic images with spectral and color Doppler imaging of the ovaries were obtained. COMPARISON: CT abdomen and pelvis from the same day. FINDINGS: Uterus: size cm. Normal echotexture of the myometrium. No masses. Endometrium: Transvaginal imaging was performed to better evaluate the endometrium. Endometrial thickness measures 3 mm. IUD in appropriate position within the endometrial canal. No mass or fluid collection. Right ovary is not visualized. Left ovary measures 5.9 x 3.7 x 4.9 cm. The images are labeled incorrectly. The 4.4 cm simple cyst is within the left ovary. Normal blood flow is present within the left ovary. Cul-de-sac: Small volume simple free fluid. IMPRESSION: 1. 4.4 cm simple left ovarian cyst. 2. IUD in appropriate position within the endometrial canal. Dictated by Lane Hamilton MD @ 06/01/2025 1:14:36 AM (Electronic Signature) Discharge Plan Discharge Clinical Impression: Cyst of left ovary, Enteritis Patient Disposition: Home, Self-Care Condition: Stable Instructions: Ovarian Cyst (ED), Enteritis (ED) Additional Instructions: Can try the Toradol 10 mg every 6 hours as needed up to 5 days. Can use Tylenol with this, 1000 mg 3 times a day. May need to stick with clear liquids, bland diet in case you are developing a ?stomach bug?. Do recommend scheduling a clinic follow-up within the next week to go over all of the CT findings indeed in sure no further workup or acute care is needed. If at any point you have concerns about worsening symptoms, severe abdominal pain, abdominal pain with fever or vomiting, please return to the ER. Activity Level: Activity as Tolerated Prescriptions: No Action montelukast 10 mg tablet 10 mg PO QPM Follow Up/Referrals: Jodie Grijalva PA-C [Primary Care Provider, Pediatrics] Stand Alone Forms: [employer] Info Instructions
[2025-05-31 20:55] LABS: Lactate* 0.6 mmol/L (0.5-1.9)
[2025-05-31 20:59] LABS: Hematocrit* 41.9 % (33.0-51.0); Hemoglobin* 13.9 gm/dL (12.0-16.0); Immature Granulocytes Abs Auto 0.00 K/uL (0.00-0.30); Immature Granulocytes Pct Auto 0.0 %; Mean Corpuscular HGB Conc 33 gm/dL (32-36); Mean Corpuscular Hemoglobin 30 pg (26-34); Mean Corpuscular Volume 91 fL (80-100); RDW Coefficient of Variation % 11.9 % (11.5-15.5); Red Blood Count* 4.61 m/uL (4.00-5.20); White Blood Count* 7.32 K/uL (4.50-11.00)
[2025-05-31 21:02] LABS: Lymphocytes Absolute Auto 1.10 K/uL (0.90-2.90)
[2025-05-31 21:03] LABS: Slide Review Reflex No
[2025-05-31 21:05] VITALS: TEMP 36.7
[2025-05-31] MEDS: ONDANSETRON 2 MG/ML inj 4 MG IVP (21:05)
[2025-05-31 21:14] LABS: Albumin* 3.5 g/dL (3.3-5.0); Chloride* 104 mmol/L (96-114); Potassium* 3.9 mmol/L (3.6-5.1); Sodium* 135 mmol/L (135-149)
[2025-05-31 21:16] LABS: Blood Urea Nitrogen* 11 mg/dL (5-24); Creatinine* 0.8 mg/dL (0.5-1.5); Est. Creatinine Clearance* 90.53; Estimated Glomerular Filt Rate 93 ml/min; HCG Qualitative Serum* Negative (Negative)
[2025-05-31 21:17] LABS: Alanine Aminotransferase* 22 U/L (4-35); Alkaline Phosphatase* 73 U/L (40-150); Anion Gap 3 mEq/L (7-15); Aspartate Amino Transferase* 26 U/L (12-35); Bilirubin Direct* 0.0 mg/dL (0.0-0.5); Bilirubin Total* 0.2 mg/dL (0.1-1.5); Calcium* 8.4 mg/dL (8.4-10.6); Carbon Dioxide* 28 mmol/L (20-32); Glucose* 95 mg/dL (60-115); Total Protein* 6.1 g/dL (6.0-8.3)
--- NOTE | 2025-05-31 21:48 | CRLHL7_ITS ---
For Patients: As a result of the Century Cures Act, medical imaging exams and procedure reports are released immediately into your electronic medical record. You may view this report before your referring provider. If you have questions, please contact your health care provider. INDICATION: Right upper quadrant/epigastric abdominal pain. TECHNIQUE: CT abdomen and pelvis acquired with 118 cc Isovue 370 IV contrast. COMPARISON: Abdominal ultrasound 05/31/2025. FINDINGS: Lower chest: Unremarkable. Liver: Unremarkable. Gallbladder and bile ducts: Unremarkable. Pancreas: Unremarkable. Spleen: Unremarkable. Adrenal glands: Unremarkable. Kidneys: Symmetric renal enhancement. No hydronephrosis or hydroureter. No obstructing calculi. GI tract: No bowel obstruction. Mild wall thickening of scattered small bowel loops. Moderate colonic stool burden. Normal appendix. Vasculature: No abdominal aortic aneurysm. Grossly patent vasculature. Lymph nodes: Several minimally prominent mesenteric lymph nodes. Peritoneum/Abdominal Wall: Trace pelvic ascites. No pneumoperitoneum. Mild mesenteric fat stranding centrally. Pelvis: Minimal bladder wall thickening. Left adnexal cyst measuring 5.0 cm. Intrauterine device grossly in satisfactory position. Bones: No acute abnormality. IMPRESSION: 1. Mild wall thickening of scattered small bowel loops may reflect sequelae of mild nonspecific enteritis. 2. Mild central mesenteric fat stranding with numerous mildly prominent mesenteric lymph nodes, nonspecific, but may be seen in the setting of sclerosing mesenteritis. 3. Moderate colonic stool burden. 4. Minimal bladder wall thickening. Correlate for cystitis. 5. Left adnexal cyst measuring 5.0 cm. Please note that all CT scans at this facility use dose modulation, iterative reconstruction, and/or weight-based dosing when appropriate to reduce radiation dose to as low as reasonably achievable. Dictated by Dionisio Ramires MD @ 05/31/2025 10:57:21 PM (Electronically Signed)
[2025-05-31 21:56] LABS: Appearance Urine Clear (Clear)
[2025-05-31 22:10] VITALS: TEMP 36.7
[2025-05-31 22:45] VITALS: BP 135/74; PULSE 71; RESP 18; TEMP 36.7; O2SAT 99
--- NOTE | 2025-05-31 23:30 | CRLHL7_ITS ---
For Patients: As a result of the Century Cures Act, medical imaging exams and procedure reports are released immediately into your electronic medical record. You may view this report before your referring provider. If you have questions, please contact your health care provider. INDICATION: Left ovarian cyst, Mirena IUD. TECHNIQUE: Ultrasound pelvis transvaginal for better assessment or to better visualize the endometrium. Real-time sonographic images with spectral and color Doppler imaging of the ovaries were obtained. COMPARISON: CT abdomen and pelvis from the same day. FINDINGS: Uterus: size cm. Normal echotexture of the myometrium. No masses. Endometrium: Transvaginal imaging was performed to better evaluate the endometrium. Endometrial thickness measures 3 mm. IUD in appropriate position within the endometrial canal. No mass or fluid collection. Right ovary is not visualized. Left ovary measures 5.9 x 3.7 x 4.9 cm. The images are labeled incorrectly. The 4.4 cm simple cyst is within the left ovary. Normal blood flow is present within the left ovary. Cul-de-sac: Small volume simple free fluid. IMPRESSION: 1. 4.4 cm simple left ovarian cyst. 2. IUD in appropriate position within the endometrial canal. Dictated by Lane Hamilton MD @ 06/01/2025 1:14:36 AM (Electronically Signed)
[2025-06-01 00:22] VITALS: BP 131/74; PULSE 78; RESP 18; TEMP 36.7; O2SAT 99
[2025-06-01 00:23] VITALS: BP 131/74; PULSE 78; RESP 18; TEMP 36.7
== END 2025-06-01 00:31 | disposition home or self-care (01) ==
PROVIDERS: Emergency Provider Family Medicine; PCP Physician Assistant
DX: N83.202 Unspecified ovarian cyst, left side (principal); K52.9 Noninfective gastroenteritis and colitis, unspecified; Z97.5 Presence of (intrauterine) contraceptive device
CPT/HCPCS: 36415; 74177; 76705; 76830; 80053; 81001; 82248; 83605; 83690; 84703; 85025; 86140; 99284; 99285; J1885; J2405; J7030; Q9967